=== PATIENT | female | born 1955 | race Caucasian/White ===

== ENCOUNTER 2023-03-30 11:43 | Inpatient (IN) | payer MEDICARE ==
[2023-03-30 12:48] LABS: #Neutrophils 10.4 thou/uL (1.40-6.50); %Basophils 0.2 % (0.0-1.0); %Eosinophils 0.2 % (0.0-10.0); %Lymphocytes 12.5 % (21.0-51.0); %Monocytes 7.7 % (0.0-10.0); %Neutrophils 78.9 % (42.0-75.0); Hemoglobin 12.3 g/dL (12.0-16.0); Mean Corpuscular HGB CONC 34.2 g/dL (32.0-36.0); Mean Corpuscular Hemoglobin 28.3 pg (27.0-31.0); Mean Corpuscular Volume 82.8 fl (78.0-98.0); Mean Platelet Volume 9.3 fL (7.4-10.4); Platelet Count 826 10x3/uL (130-400); Red Blood Cell (RBC) Count 4.35 mill/uL (4.20-5.40); White Blood Cell (WBC) Count 13.2 10x3/uL (4.8-10.8)
[2023-03-30 13:08] LABS: ALT (SGPT) 7 U/L (8-55); AST (SGOT) 13 U/L (5-34); Albumin 3.6 g/dL (3.4-4.8); Alkaline Phosphatase 129 U/L (40-110); Anion Gap 24 mmol/L (10-20); BUN (Urea Nitrogen) 4 mg/dL (9.8-20.1); Bilirubin, Total 0.5 mg/dL (0.2-1.2); Calc. Creatinine Clearance 0 mL/min (70-130); Calcium 8.6 mg/dL (7.8-10.44); Carbon Dioxide 20 mmol/L (23-31); Chloride 91 mmol/L (98-107); Estimated GFR 72; Globulin 2.9 g/dL (2.4-3.5); Glucose 137 mg/dL (80-115); Protein, Total 6.5 g/dL (5.8-8.1); Sodium 132 mmol/L (136-145)
[2023-03-30 13:15] LABS: Potassium 2.5 mmol/L (3.5-5.1)
[2023-03-30 13:19] LABS: Troponin I 0.036 ng/mL (< 0.028)
[2023-03-30] MEDS ORDERED: Potassium Chloride 20 MEQ in Premix Bag 1 BAG IVPB SCH (14:45)
[2023-03-30 14:48] LABS: Actual Bicarbonate (HCO3v) 25.1 mEq/L (22-28); Calcium, Ionized (venous) 0.99 mmol/L (1.16-1.32); Chloride (VBG) 92 mmol/L (98-106); Hematocrit-VBG 39 % (36.0-47.0); Hemoglobin (Hb) 13.2 g/dL (11.7-16.1); Sodium 132 mmol/L (133-146); pH (venous) 7.434 (7.32-7.43)
[2023-03-30 14:50] LABS: Potassium (VBG) 2.45 mmol/L (3.70-5.30)
[2023-03-30 14:52] LABS: Magnesium 1.4 mg/dL (1.6-2.6)
[2023-03-30] MEDS ORDERED: Potassium Chloride 20 MEQ/100 ML PREMIX BAG ONE (15:11)
[2023-03-30] MEDS ORDERED: Iopamidol-370 76% 500 ML MDV (1 ML CHARGE) ONE (16:00)
[2023-03-30 17:14] LABS: Phosphorus 3.7 mg/dL (2.3-4.7)
[2023-03-30] MEDS ORDERED: Magnesium 2 GM/50 ML BAG (IN WATER) ONE (18:12)
[2023-03-30] MEDS ORDERED: Ondansetron ODT 4 MG TAB PO PRN (18:31)
[2023-03-30] MEDS ORDERED: Acetaminophen 325 MG TAB PO PRN ×2 (18:31→18:45)
[2023-03-30] MEDS ORDERED: Ondansetron PF 4 MG/2 ML Vial IVP PRN ×2 (18:31→18:45)
[2023-03-30] MEDS ORDERED: Ondansetron ODT 4 MG TAB SL PRN (18:45)
[2023-03-30] MEDS ORDERED: NS 0.9% w/ 40 MEQ KCL 500 ML IV SCH (18:45)
[2023-03-30 18:48] VITALS: BMI 21.2
[2023-03-30] MEDS ORDERED: Docusate 100 MG CAP PO SCH (21:00)
[2023-03-30] MEDS: traMADol HCl 50 MG TAB PO PRN (22:26)
[2023-03-31] MEDS ORDERED: Potassium Phosphate 30 MMOL in Sodium Chloride 0.9% 500 ML IVPB SCH (01:30)
[2023-03-31 04:30] LABS: #Monocytes 0.9 thou/uL (0.11-0.59); #Neutrophils 5.7 thou/uL (1.40-6.50); %Basophils 0.2 % (0.0-1.0); %Eosinophils 0.5 % (0.0-10.0); %Lymphocytes 23.3 % (21.0-51.0); %Monocytes 10.2 % (0.0-10.0); %Neutrophils 65.3 % (42.0-75.0); Hematocrit 31.6 % (36.0-47.0); Hemoglobin 10.8 g/dL (12.0-16.0); Mean Corpuscular HGB CONC 34.2 g/dL (32.0-36.0); Mean Corpuscular Hemoglobin 28.5 pg (27.0-31.0); Mean Corpuscular Volume 83.4 fl (78.0-98.0); Mean Platelet Volume 9.2 fL (7.4-10.4); RBC Distribution Width 15.1 % (11.5-14.5); Red Blood Cell (RBC) Count 3.79 mill/uL (4.20-5.40); White Blood Cell (WBC) Count 8.7 10x3/uL (4.8-10.8)
[2023-03-31 04:35] LABS: Platelet Count 693 10x3/uL (130-400)
[2023-03-31 04:59] LABS: Anion Gap 22 mmol/L (10-20); BUN (Urea Nitrogen) 6 mg/dL (9.8-20.1); Calc. Creatinine Clearance 59 mL/min (70-130); Calcium 7.8 mg/dL (7.8-10.44); Carbon Dioxide 17 mmol/L (23-31); Chloride 97 mmol/L (98-107); Estimated GFR 87; Glucose 87 mg/dL (80-115); Magnesium 1.7 mg/dL (1.6-2.6); Phosphorus 4.2 mg/dL (2.3-4.7); Potassium 2.7 mmol/L (3.5-5.1); Sodium 133 mmol/L (136-145)
[2023-03-31] MEDS ORDERED: Electrolyte Replacement Protocol 1 EACH FS SCH (05:23)
[2023-03-31] MEDS: Thyroid 60 MG TAB PO SCH (05:27)
[2023-03-31] MEDS ORDERED: Promethazine HCl 12.5 MG in Sodium Chloride 0.9% 50 ML IVPB PRN (07:35)
[2023-03-31] MEDS ORDERED: Dextrose 5% in Water 1,000 ML IV PRN (07:36)
[2023-03-31] MEDS ORDERED: Glucagon 1 MG/ML KIT IM PRN (07:36)
[2023-03-31] MEDS ORDERED: HumaLOG 300 UNITS/3 ML VIAL SC PRN (07:36)
[2023-03-31] MEDS ORDERED: Dextrose 50% Abboject 50 ML SYRINGE SLOW IVP PRN (07:36)
[2023-03-31] MEDS ORDERED: Docusate 100 MG CAP PO PRN (07:37)
[2023-03-31] MEDS ORDERED: Potassium Chloride 40 MEQ in Premix Bag 1 BAG IVPB SCH (07:45)
[2023-03-31] MEDS ORDERED: Magnesium 2 GM/50 ML(in water) 2 GM in Premix Bag 1 BAG IVPB SCH (08:00)
[2023-03-31] MEDS: D5 LR w/20 mEq KCL 1,000 ML IV SCH (08:28)
[2023-03-31] MEDS: Pantoprazole 40 MG VIAL IVP SCH (08:29)
[2023-03-31] MEDS: DULoxetine 60 MG CAP PO SCH (08:29)
[2023-03-31] MEDS ORDERED: clonazePAM 0.5 MG TAB PO SCH (09:00)
[2023-03-31] MEDS: Potassium Chloride 20 MEQ in Premix Bag 1 BAG IVPB SCH ×3 (10:50→17:46)
[2023-03-31] MEDS ORDERED: clonazePAM 0.5 MG TAB PO PRN (17:08)
[2023-03-31] MEDS ORDERED: GoLYTELY 4,000 ml Bottle PO SCH (18:30)
[2023-03-31 18:50] LABS: Anion Gap 19 mmol/L (10-20); BUN (Urea Nitrogen) 5 mg/dL (9.8-20.1); CRP (Inflammatory) 4.83 mg/dL (= or < 0.5); Calc. Creatinine Clearance 53 mL/min (70-130); Calcium 8.4 mg/dL (7.8-10.44); Carbon Dioxide 20 mmol/L (23-31); Chloride 98 mmol/L (98-107); Estimated GFR 76; Glucose 133 mg/dL (80-115); Potassium 3.5 mmol/L (3.5-5.1); Sodium 133 mmol/L (136-145)
[2023-03-31 21:06] LABS: Potassium 3.4 mmol/L (3.5-5.1)
[2023-03-31] MEDS ORDERED: Potassium Chloride 20 MEQ TAB PO SCH (21:15)
[2023-03-31 23:02] LABS: Actual Bicarbonate (HCO3a) 18.6 mEq/L (22-28); Base Excess (BEa) -3.7 mEq/L (-2.0 to +3.0); CO2 Tension 26.1 mmHg (35.0-45.0); Calcium, Ionized (arterial) 1.08 mmol/L (1.12-1.30); Carboxyhemoglobin (COHb) 0.3 gm% (0.0-3.0); Hematocrit-ABG 34 % (36.0-47.0); Hemoglobin (Hb) 11.6 g/dL (12.0-16.0); Potassium - ABG Lab 3.38 mmol/L (3.70-5.30); pH, Arterial 7.471 (7.35-7.45)
[2023-03-31 23:05] LABS: Puncture Site LR
[2023-03-31 23:06] LABS: ALV-art Gradient 27.105 mmHg (0-20)
[2023-03-31 23:12] LABS: #Eosinphils 0.1 thou/uL (0.0-0.7); #Monocytes 1.1 thou/uL (0.11-0.59); #Neutrophils 7.4 thou/uL (1.40-6.50); %Basophils 0.2 % (0.0-1.0); %Eosinophils 0.6 % (0.0-10.0); %Lymphocytes 21.1 % (21.0-51.0); %Monocytes 10.1 % (0.0-10.0); %Neutrophils 67.7 % (42.0-75.0); Hematocrit 30.9 % (36.0-47.0); Hemoglobin 10.7 g/dL (12.0-16.0); Mean Corpuscular HGB CONC 34.6 g/dL (32.0-36.0); Mean Corpuscular Hemoglobin 28.8 pg (27.0-31.0); Mean Corpuscular Volume 83.1 fl (78.0-98.0); Platelet Count 705 10x3/uL (130-400); RBC Distribution Width 15.4 % (11.5-14.5); Red Blood Cell (RBC) Count 3.72 mill/uL (4.20-5.40); White Blood Cell (WBC) Count 10.9 10x3/uL (4.8-10.8)
[2023-03-31 23:31] LABS: Lactic Acid 1.1 mmol/L (0.5-2.2)
[2023-03-31 23:34] LABS: ALT (SGPT) Less than 7 U/L (8-55); AST (SGOT) 10 U/L (5-34); Albumin 3.4 g/dL (3.4-4.8); Alkaline Phosphatase 100 U/L (40-110); Anion Gap 20 mmol/L (10-20); BUN (Urea Nitrogen) 4 mg/dL (9.8-20.1); Bilirubin, Total 0.3 mg/dL (0.2-1.2); Calc. Creatinine Clearance 60 mL/min (70-130); Calcium 8.2 mg/dL (7.8-10.44); Carbon Dioxide 19 mmol/L (23-31); Chloride 98 mmol/L (98-107); Estimated GFR 88; Globulin 2.6 g/dL (2.4-3.5); Glucose 104 mg/dL (80-115); Potassium 3.4 mmol/L (3.5-5.1); Sodium 134 mmol/L (136-145)
[2023-04-01 04:19] LABS: #Eosinphils 0.1 thou/uL (0.0-0.7); #Monocytes 0.8 thou/uL (0.11-0.59); #Neutrophils 4.7 thou/uL (1.40-6.50); %Basophils 0.1 % (0.0-1.0); %Lymphocytes 19.1 % (21.0-51.0); %Monocytes 11.6 % (0.0-10.0); %Neutrophils 67.9 % (42.0-75.0); Hemoglobin 9.9 g/dL (12.0-16.0); Mean Corpuscular HGB CONC 34.1 g/dL (32.0-36.0); Mean Corpuscular Hemoglobin 28.5 pg (27.0-31.0); Mean Corpuscular Volume 83.6 fl (78.0-98.0); Mean Platelet Volume 9.2 fL (7.4-10.4); Platelet Count 671 10x3/uL (130-400); RBC Distribution Width 15.4 % (11.5-14.5); Red Blood Cell (RBC) Count 3.47 mill/uL (4.20-5.40); White Blood Cell (WBC) Count 6.9 10x3/uL (4.8-10.8)
[2023-04-01] MEDS: Potassium Chloride 20 MEQ in Premix Bag 1 BAG IVPB SCH ×3 (04:29→09:24)
[2023-04-01 04:47] LABS: Anion Gap 16 mmol/L (10-20); BUN (Urea Nitrogen) 4 mg/dL (9.8-20.1); Calc. Creatinine Clearance 60 mL/min (70-130); Calcium 7.9 mg/dL (7.8-10.44); Carbon Dioxide 23 mmol/L (23-31); Chloride 98 mmol/L (98-107); Estimated GFR 88; Glucose 110 mg/dL (80-115); Magnesium 1.7 mg/dL (1.6-2.6); Phosphorus 3.4 mg/dL (2.3-4.7); Sodium 134 mmol/L (136-145)
[2023-04-01] MEDS: QUEtiapine 25 MG TAB PO SCH ×2 (04:51→21:22)
[2023-04-01] MEDS: D5 LR w/20 mEq KCL 1,000 ML IV SCH ×2 (06:16→18:38)
[2023-04-01] MEDS: Thyroid 60 MG TAB PO SCH (06:49)
[2023-04-01] MEDS ORDERED: Magnesium 2 GM/50 ML(in water) 2 GM in Premix Bag 1 BAG IVPB SCH (08:00)
[2023-04-01] MEDS: DULoxetine 60 MG CAP PO SCH (09:25)
[2023-04-01] MEDS: Pantoprazole 40 MG VIAL IVP SCH (09:25)
[2023-04-01 10:24] LABS: Bacteria/HPF None Seen HPF (None Seen); Bilirubin Negative (Negative); Blood, Urine Negative (Negative); CAUTI Indications for Culture Alt mental st,lethar; Clarity Turbid (Clear); Glucose, Urine (Dipstick) Normal (Negative); Ketone, Urine 40 mg/dL (Negative); Leukocyte 250 Leu/uL (Negative); Nitrite Negative (Negative); Protein, Urine (Dipstick) 10 mg/dL (Neg-Trace); RBC/HPF 0-3 HPF (0-3); Specific Gravity, Urine 1.017 (1.002-1.036); Squamous Epithelial 0-3 HPF (0-3); Urobilinogen Normal mg/dL (Less than 2)
[2023-04-01 10:30] LABS: Urine Culture Reflex No No
[2023-04-01] MEDS: cefTRIAXone\\ROCEPHIN 1 GM in Sodium Chloride 0.9% 100 ML IVPB SCH (16:37)
[2023-04-01] MEDS: Megestrol Acetate 40 MG TAB PO SCH (21:22)
[2023-04-01] MEDS: Docusate 100 MG CAP PO SCH (21:22)
[2023-04-02] MEDS: D5 LR w/20 mEq KCL 1,000 ML IV SCH ×3 (02:18→18:23)
[2023-04-02 05:06] LABS: #Eosinphils 0.1 thou/uL (0.0-0.7); #Monocytes 0.7 thou/uL (0.11-0.59); #Neutrophils 4.1 thou/uL (1.40-6.50); %Basophils 0.2 % (0.0-1.0); %Eosinophils 1.1 % (0.0-10.0); %Lymphocytes 24.5 % (21.0-51.0); %Monocytes 10.1 % (0.0-10.0); %Neutrophils 63.6 % (42.0-75.0); Hematocrit 28.5 % (36.0-47.0); Hemoglobin 9.8 g/dL (12.0-16.0); Mean Corpuscular HGB CONC 34.4 g/dL (32.0-36.0); Mean Corpuscular Hemoglobin 28.4 pg (27.0-31.0); Mean Corpuscular Volume 82.6 fl (78.0-98.0); Mean Platelet Volume 9.3 fL (7.4-10.4); Platelet Count 615 10x3/uL (130-400); RBC Distribution Width 15.2 % (11.5-14.5); Red Blood Cell (RBC) Count 3.45 mill/uL (4.20-5.40); White Blood Cell (WBC) Count 6.4 10x3/uL (4.8-10.8)
[2023-04-02 05:35] LABS: Anion Gap 14 mmol/L (10-20); BUN (Urea Nitrogen) Less than 4 mg/dL (9.8-20.1); Calc. Creatinine Clearance 73 mL/min (70-130); Calcium 7.9 mg/dL (7.8-10.44); Carbon Dioxide 22 mmol/L (23-31); Chloride 101 mmol/L (98-107); Estimated GFR 97; Glucose 114 mg/dL (80-115); Magnesium 1.7 mg/dL (1.6-2.6); Phosphorus 2.9 mg/dL (2.3-4.7); Potassium 3.4 mmol/L (3.5-5.1); Sodium 134 mmol/L (136-145)
[2023-04-02] MEDS: Thyroid 60 MG TAB PO SCH (05:56)
[2023-04-02] MEDS ORDERED: Magnesium 2 GM/50 ML(in water) 2 GM in Premix Bag 1 BAG IVPB SCH (08:00)
[2023-04-02] MEDS ORDERED: Potassium Chloride 20 MEQ TAB PO SCH (08:00)
[2023-04-02] MEDS: Megestrol Acetate 40 MG TAB PO SCH ×2 (08:25→20:51)
[2023-04-02] MEDS: Docusate 100 MG CAP PO SCH ×2 (08:25→20:51)
[2023-04-02] MEDS: DULoxetine 60 MG CAP PO SCH (08:25)
[2023-04-02] MEDS: Pantoprazole 40 MG VIAL IVP SCH (08:25)
[2023-04-02] MEDS ORDERED: GoLYTELY 4,000 ml Bottle PO SCH ×2 (14:45→16:15)
[2023-04-02] MEDS: cefTRIAXone\\ROCEPHIN 1 GM in Sodium Chloride 0.9% 100 ML IVPB SCH (16:21)
[2023-04-02] MEDS: Folic Acid 1 MG TAB PO SCH (20:50)
[2023-04-02] MEDS: Cyanocobalamin (Vitamin B-12) 1,000 MCG TAB PO SCH (20:50)
[2023-04-02] MEDS: Thiamine 100 MG TAB PO SCH (20:51)
[2023-04-02] MEDS: Multivit, Therapeutic 1 TAB PO SCH (20:51)
[2023-04-02] MEDS: Cholecalciferol 1,000 UNITS (25 MCG) TAB PO SCH (20:51)
[2023-04-02] MEDS: QUEtiapine 25 MG TAB PO SCH (20:51)
[2023-04-02] MEDS: traMADol HCl 50 MG TAB PO PRN (20:57)
[2023-04-03 05:34] LABS: #Eosinphils 0.1 thou/uL (0.0-0.7); #Monocytes 0.5 thou/uL (0.11-0.59); #Neutrophils 3.4 thou/uL (1.40-6.50); %Basophils 0.3 % (0.0-1.0); %Eosinophils 0.9 % (0.0-10.0); %Lymphocytes 31.6 % (21.0-51.0); %Monocytes 8.1 % (0.0-10.0); %Neutrophils 58.1 % (42.0-75.0); Hematocrit 29.4 % (36.0-47.0); Hemoglobin 10.1 g/dL (12.0-16.0); Mean Corpuscular HGB CONC 34.4 g/dL (32.0-36.0); Mean Corpuscular Hemoglobin 28.7 pg (27.0-31.0); Mean Corpuscular Volume 83.5 fl (78.0-98.0); Mean Platelet Volume 9.4 fL (7.4-10.4); Platelet Count 646 10x3/uL (130-400); RBC Distribution Width 15.5 % (11.5-14.5); Red Blood Cell (RBC) Count 3.52 mill/uL (4.20-5.40); White Blood Cell (WBC) Count 5.8 10x3/uL (4.8-10.8)
[2023-04-03 06:02] LABS: Anion Gap 14 mmol/L (10-20); BUN (Urea Nitrogen) Less than 4 mg/dL (9.8-20.1); Calc. Creatinine Clearance 75 mL/min (70-130); Carbon Dioxide 26 mmol/L (23-31); Chloride 100 mmol/L (98-107); Estimated GFR 97; Glucose 98 mg/dL (80-115); Magnesium 1.7 mg/dL (1.6-2.6); Phosphorus 2.6 mg/dL (2.3-4.7); Potassium 3.6 mmol/L (3.5-5.1); Sodium 136 mmol/L (136-145)
[2023-04-03] MEDS: Thyroid 60 MG TAB PO SCH (06:16)
[2023-04-03] MEDS: D5 LR w/20 mEq KCL 1,000 ML IV SCH ×2 (06:16→16:54)
[2023-04-03] MEDS ORDERED: Magnesium 2 GM/50 ML(in water) 2 GM in Premix Bag 1 BAG IVPB SCH (08:00)
[2023-04-03] MEDS: Docusate 100 MG CAP PO SCH ×2 (08:17→21:52)
[2023-04-03] MEDS: DULoxetine 60 MG CAP PO SCH (08:19)
[2023-04-03] MEDS: Megestrol Acetate 40 MG TAB PO SCH ×2 (08:20→21:51)
[2023-04-03] MEDS: Pantoprazole 40 MG VIAL IVP SCH (08:22)
[2023-04-03] MEDS ORDERED: Lidocaine 1% PF 5 ML VIAL ONE (11:04)
[2023-04-03] MEDS ORDERED: PROPOFOL 200 MG/20 ML VIAL ONE (11:04)
[2023-04-03] MEDS: cefTRIAXone\\ROCEPHIN 1 GM in Sodium Chloride 0.9% 100 ML IVPB SCH (16:04)
[2023-04-03] MEDS: Metoprolol Tartrate 5 MG/5 ML VIAL IVP SCH ×2 (16:44→16:57)
[2023-04-03] MEDS: Folic Acid 1 MG TAB PO SCH (21:51)
[2023-04-03] MEDS: Thiamine 100 MG TAB PO SCH (21:51)
[2023-04-03] MEDS: Cyanocobalamin (Vitamin B-12) 1,000 MCG TAB PO SCH (21:51)
[2023-04-03] MEDS: Multivit, Therapeutic 1 TAB PO SCH (21:51)
[2023-04-03] MEDS: Cholecalciferol 1,000 UNITS (25 MCG) TAB PO SCH (21:51)
[2023-04-03] MEDS: QUEtiapine 25 MG TAB PO SCH (21:52)
[2023-04-04 05:20] LABS: #Eosinphils 0.1 thou/uL (0.0-0.7); #Monocytes 0.5 thou/uL (0.11-0.59); %Basophils 0.3 % (0.0-1.0); %Eosinophils 1.2 % (0.0-10.0); %Lymphocytes 38.8 % (21.0-51.0); %Monocytes 7.9 % (0.0-10.0); %Neutrophils 50.8 % (42.0-75.0); Hematocrit 32.1 % (36.0-47.0); Hemoglobin 10.8 g/dL (12.0-16.0); Mean Corpuscular HGB CONC 33.6 g/dL (32.0-36.0); Mean Corpuscular Hemoglobin 28.6 pg (27.0-31.0); Mean Corpuscular Volume 85.1 fl (78.0-98.0); Mean Platelet Volume 9.4 fL (7.4-10.4); Platelet Count 622 10x3/uL (130-400); RBC Distribution Width 15.7 % (11.5-14.5); Red Blood Cell (RBC) Count 3.77 mill/uL (4.20-5.40)
[2023-04-04] MEDS: D5 LR w/20 mEq KCL 1,000 ML IV SCH ×2 (05:26→20:46)
[2023-04-04] MEDS: Thyroid 60 MG TAB PO SCH (05:27)
[2023-04-04 05:48] LABS: Anion Gap 15 mmol/L (10-20); BUN (Urea Nitrogen) Less than 4 mg/dL (9.8-20.1); Calc. Creatinine Clearance 78 mL/min (70-130); Calcium 8.2 mg/dL (7.8-10.44); Carbon Dioxide 25 mmol/L (23-31); Chloride 98 mmol/L (98-107); Estimated GFR 98; Glucose 81 mg/dL (80-115); Sodium 135 mmol/L (136-145)
[2023-04-04] MEDS ORDERED: Potassium Chloride 20 MEQ TAB PO SCH (08:00)
[2023-04-04] MEDS: Megestrol Acetate 40 MG TAB PO SCH ×2 (09:24→20:46)
[2023-04-04] MEDS: Pantoprazole 40 MG VIAL IVP SCH (09:25)
[2023-04-04] MEDS: DULoxetine 60 MG CAP PO SCH (09:25)
[2023-04-04] MEDS: Docusate 100 MG CAP PO SCH ×2 (09:25→20:47)
[2023-04-04] MEDS: traMADol HCl 50 MG TAB PO PRN ×2 (12:47→18:25)
[2023-04-04] MEDS ORDERED: cefTRIAXone\\ROCEPHIN 1 GM in Sodium Chloride 0.9% 100 ML IVPB SCH (16:00)
[2023-04-04] MEDS: Thiamine 100 MG TAB PO SCH (20:47)
[2023-04-04] MEDS: Cyanocobalamin (Vitamin B-12) 1,000 MCG TAB PO SCH (20:47)
[2023-04-04] MEDS: Multivit, Therapeutic 1 TAB PO SCH (20:47)
[2023-04-04] MEDS: QUEtiapine 25 MG TAB PO SCH (20:47)
[2023-04-04] MEDS: Cholecalciferol 1,000 UNITS (25 MCG) TAB PO SCH (20:48)
[2023-04-04] MEDS: Folic Acid 1 MG TAB PO SCH (20:50)
[2023-04-05 06:37] LABS: #Eosinphils 0.1 thou/uL (0.0-0.7); #Monocytes 0.6 thou/uL (0.11-0.59); #Neutrophils 5.9 thou/uL (1.40-6.50); %Basophils 0.3 % (0.0-1.0); %Eosinophils 0.8 % (0.0-10.0); %Lymphocytes 24.9 % (21.0-51.0); %Monocytes 6.6 % (0.0-10.0); %Neutrophils 66.6 % (42.0-75.0); Hematocrit 30.2 % (36.0-47.0); Hemoglobin 9.9 g/dL (12.0-16.0); Mean Corpuscular HGB CONC 32.8 g/dL (32.0-36.0); Mean Corpuscular Hemoglobin 27.8 pg (27.0-31.0); Mean Corpuscular Volume 84.8 fl (78.0-98.0); Mean Platelet Volume 9.2 fL (7.4-10.4); Platelet Count 609 10x3/uL (130-400); RBC Distribution Width 15.6 % (11.5-14.5); Red Blood Cell (RBC) Count 3.56 mill/uL (4.20-5.40); White Blood Cell (WBC) Count 8.9 10x3/uL (4.8-10.8)
[2023-04-05] MEDS: Thyroid 60 MG TAB PO SCH (06:47)
[2023-04-05 06:58] LABS: Anion Gap 11 mmol/L (10-20); BUN (Urea Nitrogen) Less than 4 mg/dL (9.8-20.1); Calc. Creatinine Clearance 74 mL/min (70-130); Calcium 8.2 mg/dL (7.8-10.44); Carbon Dioxide 27 mmol/L (23-31); Chloride 100 mmol/L (98-107); Estimated GFR 97; Glucose 99 mg/dL (80-115); Potassium 3.3 mmol/L (3.5-5.1); Sodium 135 mmol/L (136-145)
[2023-04-05] MEDS: traMADol HCl 50 MG TAB PO PRN (09:00)
[2023-04-05] MEDS: DULoxetine 60 MG CAP PO SCH (09:01)
[2023-04-05] MEDS: Megestrol Acetate 40 MG TAB PO SCH (09:01)
[2023-04-05] MEDS: D5 LR w/20 mEq KCL 1,000 ML IV SCH (09:02)
[2023-04-05] MEDS: Docusate 100 MG CAP PO SCH (09:02)
[2023-04-05] MEDS: Pantoprazole 40 MG VIAL IVP SCH (09:02)
[2023-04-05 11:36] VITALS: BP 129/81; TEMP 98.4
[2023-04-05] MEDS ORDERED: Potassium Chloride 20 MEQ TAB PO SCH (13:30)
== END 2023-04-05 15:01 | disposition home health service (06) | DRG 640 ==
LOC: ERS 11:43 → 2SE 17:31
PROVIDERS: ADMIT Internal Medicine; ATTEND Internal Medicine
PROC: 4A033R1 Measurement of Arterial Saturation, Peripheral, Percutaneous Approach (ICD-10-PCS; 2023-03-31)
PROC: 0DB98ZX Excision of Duodenum, Via Natural or Artificial Opening Endoscopic, Diagnostic (ICD-10-PCS; principal; 2023-04-03)
PROC: 0DBF8ZX Excision of Right Large Intestine, Via Natural or Artificial Opening Endoscopic, Diagnostic (ICD-10-PCS; 2023-04-03)
PROC: 4A10X4Z Monitoring of Central Nervous Electrical Activity, External Approach (ICD-10-PCS; 2023-04-04)
DX: E87.1 Hypo-osmolality and hyponatremia (principal); E43 Unspecified severe protein-calorie malnutrition; G93.41 Metabolic encephalopathy; I31.39 Other pericardial effusion (noninflammatory); N39.0 Urinary tract infection, site not specified; M84.48XA Pathological fracture, other site, initial encounter for fracture; E11.9 Type 2 diabetes mellitus without complications; K52.9 Noninfective gastroenteritis and colitis, unspecified; E87.20 Acidosis, unspecified; I10 Essential (primary) hypertension; E87.6 Hypokalemia; D32.9 Benign neoplasm of meninges, unspecified; R62.7 Adult failure to thrive; M06.9 Rheumatoid arthritis, unspecified; D72.829 Elevated white blood cell count, unspecified; K59.01 Slow transit constipation; R13.10 Dysphagia, unspecified; E86.0 Dehydration; D53.9 Nutritional anemia, unspecified; Z98.890 Other specified postprocedural states; Z90.710 Acquired absence of both cervix and uterus; Z90.49 Acquired absence of other specified parts of digestive tract; Z68.21 Body mass index [BMI] 21.0-21.9, adult; Z79.899 Other long term (current) drug therapy; Z87.891 Personal history of nicotine dependence
CPT/HCPCS: 36415; 36416; 70450; 70553; 71045; 71260; 74177; 80048; 80053; 81001; 82010; 82533; 82805; 83605; 83735; 84100; 84443; 84484; 85025; 86140; 87040; 88305; 93005; 93010; 93306; 95711; 95819; 95957; 96365; 96366; 96375; C9113; J0696; J2550; J2704; J3475; J3480; J3490; J7030; Q9967; S0179